=== PATIENT | male | born 1985 | race Caucasian/White ===

== ENCOUNTER 2016-09-28 13:24 | Emergency (ER) | payer SELFPAY ==
[~2016-09-28] VITALS: Ht 152.4 cm; Wt 70.0 kg
[2016-09-28 13:26] VITALS: Ht 152.4 cm; Wt 70.0 kg
[2016-09-28] MEDS ORDERED: LIDOCAINE 1% (MDV) 10 ML INJ INJ STA (13:56)
[2016-09-28] MEDS ORDERED: DIPHTH/TET/ACEL PERTUSS (ADULT) 0.5 ML VIAL IM* ONE (14:00)
--- NOTE | 2016-09-28 14:02 | ERD ---
ER Documentation Chief Complaint Date/Time DATE: 09/28/16 TIME: 13:59 Chief Complaint left pinky lac HPI Patient is a 31-year-old male who has a right pinky laceration that he sustained today accidently with a knife. Admits to some numbness and tingling. Denies any loss of range of motion. Unsure last tetanus vaccination. Pain is throbbing. ROS All systems reviewed and are negative except as per history of present illness. Allergies Allergies: Coded Allergies: No Known Allergy (Unverified , 09/28/16) FmHx Family History: No diabetes Physical Exam Vitals Vital Signs Date Time Temp Pulse Resp B/P Pulse Ox O2 Delivery O2 Flow Rate FiO2 09/28/16 13:26 97.8 86 18 142/80 99 Physical Exam Const: [] Head: Atraumatic Eyes: Normal Conjunctiva ENT: Normal External Ears, Nose and Mouth. Neck: Full range of motion..~ No meningismus. Resp: Clear to auscultation bilaterally Cardio: Regular rate and rhythm, no murmurs Abd: Soft, non tender, non distended. Normal bowel sounds Skin: Right pinky has small skin avulsion on the pad surface of the distal pinky, full range of motion in both extension and flexion against resistance, no bony abnormalities, capillary refill less than 2 seconds Results 24 hrs Current Medications Medications (Trade) Dose Ordered Sig/Yumiko Route PRN Reason Start Time Stop Time Status Last Admin Dose Admin Diphtheria/ Tetanus/Acell Pertussis (Adacel) 0.5 ml ONCE ONCE IM* 09/28/16 14:00 09/28/16 14:02 DC 09/28/16 14:50 Lidocaine HCl (Lidocaine 1% (Mdv) 10 ml) 10 ml ONCE STAT INJ 09/28/16 13:56 09/28/16 14:02 DC Procedures/MDM 31-year-old male has pinky laceration. The wound was irrigated and cleaned with normal saline. He was given a tetanus vaccination. Laceration is not open and gaping and is more of an avulsion and there is no indication for suturing at this time. His wound was appropriately dressed and bandaged. Patient counseled regarding my diagnostic impression and care plan. Prior to discharge all questions answered. Pt agrees with treatment plan and understands strict return precautions. Pt is instructed to follow up with primary care provider within 24-48 hours. Precautionary instructions provided including instructions to return to the ER if not improving or for any worsening or changing symptoms or concerns. Departure Diagnosis: Primary Impression: Laceration Condition: Stable HIEN ROBLES PA-C Sep 28, 2016 14:01
== END 2016-09-28 17:10 | disposition left against medical advice (07) ==
LOC: FTE 13:24
DX: S61.217A Laceration without foreign body of left little finger without damage to nail, initial encounter (principal); W26.0XXA Contact with knife, initial encounter; Y92.9 Unspecified place or not applicable
CPT/HCPCS: 90471; 90715